=== PATIENT | male | born 1995 | race Caucasian/White ===

== ENCOUNTER 2025-04-09 22:40 | Emergency (ER) | payer BC ==
[~2025-04-09] VITALS: Ht 177.8 cm; Wt 111.1 kg
[2025-04-10 00:09] LABS: APPEARANCE,URINE TURBID (CLEAR); BLOOD, URINE 3+ Ery/uL (NEGATIVE); LEUKOCYTE ESTERASE ,URINE 2+ (NEGATIVE); NITRITE, URINE POSITIVE (NEGATIVE); UGLUCOSE NEGATIVE (NEGATIVE)
[2025-04-10] MEDS ORDERED: LEVO250T59 PO (00:26)
[2025-04-10] MEDS ORDERED: LEVOFLOXACIN (250MG) 250 MG TABLET PO ONE (00:30)
[2025-04-10] MEDS ORDERED: LEVOFLOXACIN (250MG) 250 MG TABLET ONE (00:30)
[2025-04-10 00:37] VITALS: BP 146/83; TEMP 98.2; O2SAT 100
[2025-04-10 00:43] LABS: ADD URINE CULTURE YES; SQUAMOUS EPITHELIAL CELL,UR None Seen /HPF (None Seen)
[2025-04-11 22:06] LABS: CHLAMYDIA TRACHOMATIS NAA Negative (Negative); NEISSERIA GONORRHOEAE NAA Negative (Negative)
== END 2025-04-10 00:37 | disposition home or self-care (01) ==
LOC: ER 23:02
DX: N39.0 Urinary tract infection, site not specified (principal); J45.909 Unspecified asthma, uncomplicated; F41.9 Anxiety disorder, unspecified
CPT/HCPCS: 81001; 87086-TC; 87491; 87591